=== PATIENT | female | born 1945 | race Caucasian/White ===

== ENCOUNTER 2021-05-21 21:39 | Observation (INO) ==
[2021-05-22] MEDS ORDERED: Perflutren Lipid Microsphere 1.3 ML in 0.9 % Sodium Chloride 8.7 ML IVP PRN (03:03)
[2021-05-22] MEDS ORDERED: Ondansetron 4 MG/2 ML VIAL IVP PRN (03:14)
[2021-05-22] MEDS ORDERED: Naloxone 0.4 MG/ML INJ IVP PRN (03:14)
[2021-05-22] MEDS ORDERED: Acetaminophen 325 MG TABLET PO PRN (03:14)
[2021-05-22] MEDS ORDERED: Nitroglycerin 0.4 MG TAB.SUBL SL PRN (03:15)
[2021-05-22] MEDS ORDERED: Morphine Sulfate 2 MG/ML SYRINGE IVP PRN (03:16)
[2021-05-22 05:03] LABS: Basophils % 0.6 %; Eosinophils # 0.2 K/mcL (0.0-0.6); Eosinophils % 2.7 %; Hematocrit 34.3 % (35.3-44.9); Hemoglobin 10.1 g/dL (11.5-15.4); Immature Granulocytes % 0.4 % (0-4); Lymphocytes # 1.1 K/mcL (0.6-4.6); Mean Corpuscular HGB Conc 29.4 g/dL (31.6-35.5); Mean Platelet Volume 9.5 fL (9.4-12.4); Monocytes # 0.6 K/mcL (0.0-1.3); Monocytes % 8.9 %; Platelet Count 384 K/mcL (140-400); Red Blood Count 3.61 M/mcL (3.82-4.97); Red Cell Distribution Width 14.3 % (11.5-14.5); Segmented Neutrophils % 71.4 %
[2021-05-22 05:08] LABS: INR 1.3; Prothrombin Time 14.7 Seconds (9.4-12.1)
[2021-05-22 05:11] LABS: Activated Partial Thrombo Time 32.2 Seconds (26.0-36.0)
[2021-05-22 05:19] LABS: Chol/HDL Ratio 3.6 (0-4.9)
[2021-05-22 05:23] LABS: % Iron Saturation 9 % (15-50); Alanine Aminotransferase 14 Units/L (7-52); Albumin 3.5 g/dL (3.5-5.7); Albumin/Globulin Ratio 1.4 (1.1-2.2); Alkaline Phosphatase 81 Units/L (34-104); Aspartate Amino Transferase 21 Units/L (13-39); BUN/Creatinine Ratio 31 (6-26); Bilirubin,Total 0.4 mg/dL (0.3-1.0); Blood Urea Nitrogen 18 mg/dL (8-23); Calcium 9.3 mg/dL (8.6-10.3); Carbon Dioxide 32 mEq/L (23-29); Chloride 102 mEq/L (98-107); Globulin 2.5 g/dL (2.4-3.5); Glucose 96 mg/dL (70-105); Iron 38 mcg/dL (50-170); Magnesium 1.9 mg/dL (1.6-2.6); Osmolality,Calculated 292 (280-300); Potassium 4.1 mEq/L (3.5-5.1); Sodium 140 mEq/L (136-145); Transferrin 303 mg/dL (203-362); Troponin I < 0.03 ng/mL (< 0.04); eGFR For African Americans > 60 (> 60); eGFR For Non-African Americans > 60 (> 60)
[2021-05-22 05:36] LABS: Thyroid Stimulating Hormone 1.238 mcIU/mL (0.340-5.600)
[2021-05-22 05:42] LABS: Ferritin 45 ng/mL (10-120)
[2021-05-22 05:45] LABS: Folate 14.4 ng/mL (3.0-16.0)
[2021-05-22 05:52] LABS: Estimated Average Glucose 123 mg/dl; Hemoglobin A1C 5.9 %
[2021-05-22] MEDS ORDERED: Regadenoson 0.4 MG/5 ML SYRINGE IVP ONE (05:54)
[2021-05-22] MEDS ORDERED: DilTIAZem CD (24hr) 120 MG CAP.ER.24H PO SCH (09:00)
[2021-05-22] MEDS: Apixaban 5 MG TABLET PO SCH ×2 (11:34→21:13)
[2021-05-22] MEDS: Furosemide 20 MG TABLET PO SCH (11:35)
[2021-05-22] MEDS: carvediloL 6.25 MG TABLET PO SCH ×2 (15:01→17:39)
[2021-05-22] MEDS: Melatonin 3 MG TABLET PO SCH (21:13)
[2021-05-22] MEDS: Levalbuterol Neb 1.25 MG/3 ML IH SCH (22:52)
[2021-05-23 01:18] LABS: Hematocrit 32.1 % (35.3-44.9); Hemoglobin 9.5 g/dL (11.5-15.4); Mean Corpuscular HGB Conc 29.6 g/dL (31.6-35.5); Mean Corpuscular Volume 94.7 fL (83.0-100.0); Mean Platelet Volume 9.6 fL (9.4-12.4); Platelet Count 336 K/mcL (140-400); Red Blood Count 3.39 M/mcL (3.82-4.97); Red Cell Distribution Width 14.3 % (11.5-14.5); White Blood Count 7.3 K/mcL (4.3-11.1)
[2021-05-23 01:40] LABS: BUN/Creatinine Ratio 25 (6-26); Blood Urea Nitrogen 16 mg/dL (8-23); Calcium 8.8 mg/dL (8.6-10.3); Carbon Dioxide 31 mEq/L (23-29); Chloride 100 mEq/L (98-107); Glucose 101 mg/dL (70-105); Osmolality,Calculated 283 (280-300); Potassium 3.9 mEq/L (3.5-5.1); Sodium 136 mEq/L (136-145); eGFR For African Americans > 60 (> 60); eGFR For Non-African Americans > 60 (> 60)
[2021-05-23] MEDS: Levalbuterol Neb 1.25 MG/3 ML IH SCH ×4 (03:20→20:03)
[2021-05-23] MEDS: Apixaban 5 MG TABLET PO SCH ×2 (08:25→21:38)
[2021-05-23] MEDS: carvediloL 6.25 MG TABLET PO SCH (08:25)
[2021-05-23] MEDS: Furosemide 20 MG TABLET PO SCH (08:25)
[2021-05-23] MEDS ORDERED: carvediloL 6.25 MG TABLET PO ONE (08:53)
[2021-05-23] MEDS: lisinopriL 5 MG TABLET PO SCH (12:22)
[2021-05-23] MEDS: Metoprolol XL (24 HR) Succ 25 MG TAB.ER.24H PO SCH (21:38)
[2021-05-23] MEDS: Melatonin 3 MG TABLET PO SCH (21:38)
[2021-05-24 03:25] LABS: Basophils % 0.6 %; Mean Platelet Volume 9.5 fL (9.4-12.4)
[2021-05-24 03:27] LABS: Eosinophils # 0.4 K/mcL (0.0-0.6); Eosinophils % 5.8 %; Hematocrit 32.1 % (35.3-44.9); Hemoglobin 9.6 g/dL (11.5-15.4); Immature Granulocytes % 0.1 % (0-4); Lymphocytes # 1.4 K/mcL (0.6-4.6); Lymphocytes % 19.3 %; Mean Corpuscular HGB Conc 29.9 g/dL (31.6-35.5); Mean Corpuscular Hemoglobin 28.7 pg (28.0-33.3); Mean Corpuscular Volume 95.8 fL (83.0-100.0); Monocytes % 10.5 %; Neutrophils # 4.5 K/mcL (1.6-8.9); Platelet Count 335 K/mcL (140-400); Red Blood Count 3.35 M/mcL (3.82-4.97); Red Cell Distribution Width 14.4 % (11.5-14.5); Segmented Neutrophils % 63.7 %; White Blood Count 7.1 K/mcL (4.3-11.1)
[2021-05-24 03:29] LABS: Monocytes # 0.8 K/mcL (0.0-1.3)
[2021-05-24] MEDS: Levalbuterol Neb 1.25 MG/3 ML IH SCH ×3 (03:34→15:39)
[2021-05-24 03:43] LABS: BUN/Creatinine Ratio 30 (6-26); Blood Urea Nitrogen 21 mg/dL (8-23); Calcium 8.7 mg/dL (8.6-10.3); Carbon Dioxide 32 mEq/L (23-29); Chloride 102 mEq/L (98-107); Glucose 89 mg/dL (70-105); Osmolality,Calculated 290 (280-300); Potassium 3.9 mEq/L (3.5-5.1); Sodium 139 mEq/L (136-145); eGFR For African Americans > 60 (> 60); eGFR For Non-African Americans > 60 (> 60)
[2021-05-24 05:02] LABS: Hypochromasia Present (Not Present); Platelet Estimate Normal (Normal)
[2021-05-24 06:42] VITALS: O2SAT 98
[2021-05-24] MEDS: Apixaban 5 MG TABLET PO SCH (07:59)
[2021-05-24] MEDS: Metoprolol XL (24 HR) Succ 25 MG TAB.ER.24H PO SCH (07:59)
[2021-05-24] MEDS: Furosemide 20 MG TABLET PO SCH (08:00)
[2021-05-24] MEDS: lisinopriL 5 MG TABLET PO SCH (08:00)
[2021-05-24 11:27] VITALS: BP 101/60; PULSE 93; TEMP 98
== END 2021-05-24 15:45 | disposition home or self-care (01) ==
LOC: 3BNU → SUATTDRO 23:43
PROVIDERS: ADMIT Internal Medicine; ATTEND Internal Medicine